=== PATIENT | female | born 1975 | race Caucasian/White ===

== ENCOUNTER 2020-10-31 07:01 | Day surgery (SDC) | payer OTHER ==
[~2020-10-31] VITALS: Ht 157.4 cm; Wt 54.9 kg
[~2020-10-31 07:01] MED LIST: AMBIEN10 MG PO; HYDROCODON-ACE1 EAC2 PO; NEURONTIN300 MG PO; NORTRIPTYLINE H50 MG PO; TOPAMAX50 MG PO; VITAMIN D250 MCG PO
[2020-10-31] MEDS ORDERED: ACETAMINOPHEN500 M1 PO (07:19)
[2020-10-31 08:04] LABS: HCT 47.9 % (37.0-47.0); HGB 15.9 g/dl (12.5-16.0); MCH 33.5 pg (25.0-31.0); MCHC 33.2 g/dL (32.0-36.0); MCV 101.1 fL (78.0-100.0); MPV 11.2 fL (6.0-9.5); RBC 4.74 M/uL (4.20-5.40); RDW 12.5 % (11.5-14.0); WBC 6.6 K/uL (4.0-10.5)
[2020-10-31 08:55] LABS: CREATININE 0.77 mg/dL (0.51-0.95); POTASSIUM 3.6 mmol/L (3.5-5.1)
[2020-10-31 08:56] LABS: ALBUMIN 4.6 g/dL (3.4-5.0); BILIRUBIN - TOTAL 0.4 mg/dL (0.2-1.0); GLOBULIN (CALCULATION) 3.8 g/dL; TOTAL PROTEIN 8.4 g/dL (6.4-8.2)
--- NOTE | 2020-10-31 18:08 | NUR ---
PT DOZING. ATE LIGHT DINNER. GOOD PAIN CONTROL WITH NORCO Q 3 HRS. PT DESIRES TO KEEP THAO IN UNTIL LATER IN EVENING. IN ROOM AND SUPPORTIVE.
[2020-11-01 06:17] LABS: BASOPHIL 0.2 % (0-2); EOSINOPHIL 0.4 % (0-5); HCT 45.9 % (37.0-47.0); HGB 14.9 g/dl (12.5-16.0); LYMPHOCYTE 20.4 % (15-48); MCH 33.3 pg (25.0-31.0); MCHC 32.5 g/dL (32.0-36.0); MCV 102.5 fL (78.0-100.0); MONOCYTE 7.7 % (0-12); MPV 10.7 fL (6.0-9.5); NEUTROPHIL 70.9 % (41-80); NRBC 0; PLT 226 K/uL (150-400); RBC 4.48 M/uL (4.20-5.40); RDW 12.6 % (11.5-14.0)
[2020-11-01 06:21] LABS: WBC 13.3 K/uL (4.0-10.5)
== END 2020-11-01 13:10 | disposition home or self-care (01) ==
LOC: FAS 07:01 → FOB 11:44 → FAS 11-01 13:10
PROVIDERS: Specialist
DX: N72 Inflammatory disease of cervix uteri (principal); J44.9 Chronic obstructive pulmonary disease, unspecified; F17.210 Nicotine dependence, cigarettes, uncomplicated; M79.7 Fibromyalgia; Z88.0 Allergy status to penicillin; Z91.030 Bee allergy status; Z79.899 Other long term (current) drug therapy
CPT/HCPCS: 36415; 80053; 84703; 85025; 86850; 86900; 86901; 93005; J1100; J1170; J1885; J2250; J2405; J2704; J2710; J3010; J7120; Q9968

== ENCOUNTER 2021-03-31 10:18 | Inpatient (IN) | payer OTHER ==
[~2021-03-31] VITALS: Ht 157.5 cm; Wt 51.7 kg
[~2021-03-31 10:18] MED LIST changes: +ACETAMINOPHEN500 M1 PO
[2021-03-31 11:35] LABS: BILIRUBIN 1+ mg/dL (NEGATIVE); BLOOD 2+ Ery/uL (NEGATIVE); CLARITY HAZY (CLEAR); COLOR YELLOW (YELLOW); GLUCOSE (U) NORMAL (NORMAL); LEUKOCYTES 3+ Leu/uL (NEGATIVE); NITRITE POSITIVE (NEGATIVE); PROTEIN 1+ mg/dL (NEGATIVE); UROBILINOGEN 0.2 mg/dL (0.2-1.0); pH 5.5 (5.0-9.0)
[2021-03-31 11:55] LABS: BACTERIA 2+; SQUAMOUS EPITHELIAL CELLS RARE; URINARY RBC RARE; URINARY WBC TNTC
[2021-03-31 12:29] LABS: CORONAVIRUS 2019 SARS-COV-2 NEGATIVE (NEGATIVE); INFLUENZA A NAA NEGATIVE (NEGATIVE)
[2021-03-31 12:39] LABS: BASOPHIL 0.1 % (0-2); EOSINOPHIL 0 % (0-5); LYMPHOCYTE 4.4 % (15-48); MCH 32.7 pg (25.0-31.0); MCHC 34.3 g/dL (32.0-36.0); MCV 95.4 fL (78.0-100.0); MONOCYTE 7.5 % (0-12); MPV 10.4 fL (6.0-9.5); NRBC 0; PLT 381 K/uL (150-400); RBC 3.67 M/uL (4.20-5.40); RDW 12.9 % (11.5-14.0); WBC 21.3 K/uL (4.0-10.5)
[2021-03-31 12:45] LABS: ALBUMIN 2.6 g/dL (3.4-5.0); BILIRUBIN - TOTAL 0.5 mg/dL (0.2-1.0); BUN/CREAT RATIO (CALC) 26.7 RATIO; CREATININE 0.75 mg/dL (0.51-0.95); GLOBULIN (CALCULATION) 5.1 g/dL; POTASSIUM 3.6 mmol/L (3.5-5.1); TOTAL PROTEIN 7.7 g/dL (6.4-8.2)
[2021-03-31 13:34] LABS: INR 1.2 (0.9-1.2); PROTHROMBIN TIME 14.6 SECONDS (11.8-13.4)
[2021-03-31] MEDS ORDERED: EEMT DS 1.25-21 EACH PO (21:14)
[2021-04-01 06:30] LABS: BASOPHIL 0.1 % (0-2); EOSINOPHIL 0.1 % (0-5); HCT 35.1 % (37.0-47.0); HGB 11.8 g/dl (12.5-16.0); LYMPHOCYTE 7.6 % (15-48); MCH 32.2 pg (25.0-31.0); MCHC 33.6 g/dL (32.0-36.0); MCV 95.9 fL (78.0-100.0); MONOCYTE 6.9 % (0-12); MPV 10.8 fL (6.0-9.5); NEUTROPHIL 84.6 % (41-80); NRBC 0; PLT 377 K/uL (150-400); RBC 3.66 M/uL (4.20-5.40); RDW 13.1 % (11.5-14.0); WBC 15.2 K/uL (4.0-10.5)
[2021-04-01 07:07] LABS: BUN 18 mg/dL (7-18); BUN/CREAT RATIO (CALC) 23.7 RATIO; C-REACTIVE PROTEIN > 18.00 mg/dL (<=0.90); CHLORIDE 93 mmol/L (98-107); CO2 (BICARBONATE) 25 mmol/L (21-32); CREATININE 0.76 mg/dL (0.51-0.95); GLUCOSE 116 mg/dL (74-106); POTASSIUM 3.6 mmol/L (3.5-5.1)
[2021-04-02 06:45] LABS: BASOPHIL 0.2 % (0-2); EOSINOPHIL 0.5 % (0-5); HCT 29.6 % (37.0-47.0); HGB 9.8 g/dl (12.5-16.0); LYMPHOCYTE 13.1 % (15-48); MCH 32.3 pg (25.0-31.0); MCHC 33.1 g/dL (32.0-36.0); MCV 97.7 fL (78.0-100.0); MONOCYTE 11.1 % (0-12); MPV 10.3 fL (6.0-9.5); NEUTROPHIL 74.1 % (41-80); NRBC 0; PLT 328 K/uL (150-400); RBC 3.03 M/uL (4.20-5.40); RDW 13.2 % (11.5-14.0); WBC 9.9 K/uL (4.0-10.5)
[2021-04-02 07:05] LABS: BUN/CREAT RATIO (CALC) 15.7 RATIO; CREATININE 0.7 mg/dL (0.51-0.95); POTASSIUM 3.5 mmol/L (3.5-5.1)
--- NOTE | 2021-04-02 16:21 | NUR ---
04/02/21 Ms. Ortiz lives at home with her spouse. She has one 24 y/o son who lives outside of the home. Ms. Ortiz works at [employer]. She reports to be able to meet her financial obligations. Ms. Ortiz denies history of depression or substance abuse. Discharge is anticipated for 04/03; no needs identified.
[2021-04-03 06:30] LABS: BASOPHIL 0.3 % (0-2); EOSINOPHIL 0.7 % (0-5); HCT 28.9 % (37.0-47.0); HGB 9.7 g/dl (12.5-16.0); LYMPHOCYTE 13.1 % (15-48); MCH 32.7 pg (25.0-31.0); MCHC 33.6 g/dL (32.0-36.0); MCV 97.3 fL (78.0-100.0); MONOCYTE 9.5 % (0-12); MPV 10.5 fL (6.0-9.5); NEUTROPHIL 75.2 % (41-80); NRBC 0; PLT 392 K/uL (150-400); RBC 2.97 M/uL (4.20-5.40); RDW 13.3 % (11.5-14.0); WBC 10.3 K/uL (4.0-10.5)
[2021-04-03 06:40] LABS: BUN/CREAT RATIO (CALC) 13.6 RATIO; CREATININE 0.66 mg/dL (0.51-0.95); POTASSIUM 3.7 mmol/L (3.5-5.1)
[2021-04-03] MEDS ORDERED: LEVAQUIN750 MG PO (08:37)
== END 2021-04-03 11:09 | disposition home or self-care (01) | DRG 871 ==
LOC: FER 10:18 → FMS 16:10
PROVIDERS: Emergency Medicine; Physician Assistant; ADMIT Family Medicine
DX: A41.51 Sepsis due to Escherichia coli [E. coli] (principal); J18.9 Pneumonia, unspecified organism; N17.9 Acute kidney failure, unspecified; N12 Tubulo-interstitial nephritis, not specified as acute or chronic; J44.1 Chronic obstructive pulmonary disease with (acute) exacerbation; J44.0 Chronic obstructive pulmonary disease with (acute) lower respiratory infection; R65.20 Severe sepsis without septic shock; Z20.822 Contact with and (suspected) exposure to COVID-19; N18.2 Chronic kidney disease, stage 2 (mild); N20.0 Calculus of kidney; J44.9 Chronic obstructive pulmonary disease, unspecified; M79.7 Fibromyalgia; G43.909 Migraine, unspecified, not intractable, without status migrainosus; F17.200 Nicotine dependence, unspecified, uncomplicated; Z88.0 Allergy status to penicillin; Z79.899 Other long term (current) drug therapy; Z98.890 Other specified postprocedural states; Z90.49 Acquired absence of other specified parts of digestive tract; Z90.710 Acquired absence of both cervix and uterus
CPT/HCPCS: 36415; 71045; 71275; 80048; 80053; 81001; 83605; 84145; 85025; 85379; 85610; 86140; 87040; 87076; 87088; 87186; J1650; J1885; J1956; J2405; J7030; J7120; Q9967; U0002